=== PATIENT | male | born 1950 | race Caucasian/White ===

== ENCOUNTER 2020-07-02 13:45 | Outpatient (REF) | payer MEDICARE, SELFPAY | END 2020-07-02 13:46 | disposition home or self-care (01) | LOC: HO.LAB 13:45 | PROVIDERS: PCP Family Medicine; Visit Provider Internal Medicine | DX: Z20.828 Contact with and (suspected) exposure to other viral communicable diseases (principal) | CPT/HCPCS: C9803; U0003 ==

== ENCOUNTER 2020-08-17 11:49 | Outpatient (REF) | payer MEDICARE, SELFPAY | END 2020-08-17 11:50 | disposition home or self-care (01) | LOC: HO.LAB 11:49 | PROVIDERS: Visit Provider Internal Medicine | DX: Z20.822 Contact with and (suspected) exposure to COVID-19 (principal) | CPT/HCPCS: 36415; C9803; U0003 ==

== ENCOUNTER → 2020-09-10 09:26 | Outpatient (BNVA) | payer MEDICARE, SELFPAY | PROVIDERS: Visit Provider Orthopaedic Surgery ==

== ENCOUNTER → 2020-11-30 11:23 | Outpatient (BNVA) | payer MEDICARE, SELFPAY | PROVIDERS: Visit Provider Orthopaedic Surgery | DX: M17.0 Bilateral primary osteoarthritis of knee (principal) | CPT/HCPCS: 20610; 99212; J1100 ==